=== PATIENT | female | born 1965 | race Caucasian/White ===

== ENCOUNTER 2017-01-29 07:38 | Emergency (ER) | payer OTHER ==
[2017-01-29 07:53] VITALS: BP 129/80
--- NOTE | 2017-01-29 08:24 | UC ---
Respiratory Complaint HPI - HPI Summary HPI Summary: 51 yo female with a 5 day hx of post nasal drip, nasal congestion and epistaxis no f/c no myalgias no dental pain - History of Current Complaint Chief Complaint: UCRespiratory Stated Complaint: SINUS COMPLAINT Time Seen by Provider: 01/29/17 08:13 Hx Obtained From: Patient Hx Last Menstrual Period: 2002 Onset/Duration: Gradual Onset, Lasting Days Timing: Constant Severity Initially: Mild Severity Currently: Moderate Pain Intensity: 4 Pain Scale Used: 0-10 Numeric Character: Cough: Nonproductive Aggravating Factors: Nothing Alleviating Factors: Nothing Associated Signs And Symptoms: Positive: Nasal Congestion, Sinus Discomfort Related History: Similar Episode/Dx as: - sinusitis - Allergies/Home Medications Allergies/Adverse Reactions: Allergies Allergy/AdvReac Type Severity Reaction Status Date / Time Sulfa Antibiotics Allergy Hives/Diff. Verified 01/29/17 07:47 Breathing/I tching Penicillins AdvReac See Comment Verified 01/29/17 07:47 Home Medications: Home Medications Loratadine & Pseudoephedrine [Claritin-D 24 Hour 10-240 mg] 1 tab PO DAILY 01/29 [History Confirmed 01/29/17] Omeprazole CAP* [Prilosec CAP* 20 MG] 20 mg PO DAILY 01/29/17 [History Confirmed 01/29/17] PMH/Surg Hx/FS Hx/Imm Hx Previously Healthy: Yes Cancer History Of: Denies: Breast Cancer - Surgical History Surgical History: Yes Surgery Procedure, Year, and Place: L4 L5 Microdiscectomy, 2008, ; Hysterectomy, 2002, ; C-Sections, 1992 1996, ; Bilateral Bunionectomy, 1989 1999, [place] - Family History Known Family History: Positive: Hypertension - Social History Alcohol Use: Rare Substance Use Type: None Smoking Status (MU): Never Smoked Tobacco - Immunization History Most Recent Influenza Vaccination: Not the 2016/2016 Season Review of Systems Constitutional: Negative Skin: Negative Eyes: Negative ENT: Ear Ache - mild, Nasal Discharge Respiratory: Cough Cardiovascular: Negative Gastrointestinal: Negative Genitourinary: Negative Motor: Negative Neurovascular: Negative Musculoskeletal: Negative Neurological: Negative Psychological: Negative All Other Systems Reviewed And Are Negative: Yes Physical Exam Triage Information Reviewed: Yes Appearance: Well-Appearing, No Pain Distress, Well-Nourished Vital Signs: Initial Vital Signs Temp 98.8 F 03/09/17 07:45 Pulse 74 01/29/17 07:45 Resp 16 01/29/17 07:45 BP 129/80 01/29/17 07:45 Pulse Ox 98 01/29/17 07:45 Vital Signs Reviewed: Yes Eyes: Positive: Conjunctiva Clear ENT: Positive: Hearing grossly normal, Nasal congestion, Nasal drainage, TM bulging, Other: - bilat max sinus tenderness. Negative: TMs normal - left retracted, TM dull, TM red, Tonsillar swelling, Tonsillar exudate, Trismus, Muffled/hoarse voice Dental Exam: Normal Neck: Positive: Supple, Nontender, No Lymphadenopathy Respiratory: Positive: Lungs clear, Normal breath sounds, No respiratory distress Cardiovascular: Positive: RRR, No Murmur Musculoskeletal: Positive: Strength Intact, ROM Intact, No Edema Neurological: Positive: Alert, Muscle Tone Normal Psychological Exam: Normal Skin Exam: Normal UC Diagnostic Evaluation - Laboratory O2 Sat by Pulse Oximetry: 98 Respiratory Course/Dx - Differential Dx/Diagnosis Provider Diagnoses: acute sinusitis Discharge - Discharge Plan Condition: Stable Disposition: HOME Prescriptions: Azithromycin TAB* [Zithromax TAB*] 250 mg PO DAILY #6 tab Patient Education Materials: Sinusitis (ED) Referrals: Teja Winter MD [Primary Care Provider] - 1 Week (if not better) Additional Instructions: continue saline nasal spray warm facial compresses
== END 2017-01-29 08:40 | disposition home or self-care (01) ==
LOC: UCCORT 07:38
DX: J01.90 Acute sinusitis, unspecified (principal); Z88.0 Allergy status to penicillin; Z88.2 Allergy status to sulfonamides
CPT/HCPCS: 99212; G0463

== ENCOUNTER 2018-03-19 17:54 | Emergency (ER) | payer OTHER ==
[2018-03-19 19:22] VITALS: BP 134/84
--- NOTE | 2018-03-19 19:37 | UC ---
Dental HPI - HPI Summary HPI Summary: Per human resource officer "Pt presents complaining of right upper gum pain. Started having some sensitivity about 2 days ago. It has progressively worsened. Now swollen. Has been using salt water swish and spit. " -started as a nuisance a few days ago. came adn went. woke up this morning w/ significant more swelling and now with abscess. never had one before. her dentist closed at noon today and couldnt get in. allergy to PCN, sulfa - History of Current Complaint Stated Complaint: TOOTH COMPLAINT - ABCESS Time Seen by Provider: 03/19/18 19:15 Hx Last Menstrual Period: 2002 - Allergies/Home Medications Allergies/Adverse Reactions: Allergies Allergy/AdvReac Type Severity Reaction Status Date / Time Penicillins Allergy See Comment Verified 03/19/18 19:23 Sulfa (Sulfonamide Allergy Hives/Diff. Verified 03/19/18 19:23 Antibiotics) Breathing/I tching Home Medications: Home Medications Cholecalciferol TAB* [Vitamin D TAB*] 1,000 unit PO DAILY 03/19/18 [History Confirmed 03/19/18] PMH/Surg Hx/FS Hx/Imm Hx Previously Healthy: Yes - Surgical History Surgical History: Yes Surgery Procedure, Year, and Place: L4 L5 Microdiscectomy, 2008, ; Hysterectomy, 2002, ; C-Sections, 1992 1996, ; Bilateral Bunionectomy, 1989 1999, [place] - Family History Known Family History: Positive: Hypertension - Social History Alcohol Use: Rare Substance Use Type: None Smoking Status (MU): Never Smoked Tobacco - Immunization History Most Recent Influenza Vaccination: Not the Season Review of Systems Constitutional: Negative Skin: Negative Eyes: Negative ENT: Dental Pain Respiratory: Negative Cardiovascular: Negative Gastrointestinal: Negative Genitourinary: Negative Motor: Negative Neurovascular: Negative Musculoskeletal: Negative Neurological: Negative Psychological: Negative Is Patient Immunocompromised?: No All Other Systems Reviewed And Are Negative: Yes Physical Exam Triage Information Reviewed: Yes Appearance: Well-Appearing, No Pain Distress, Well-Nourished - very pleasant Vital Signs Reviewed: Yes Eye Exam: Normal ENT: Positive: Pharynx normal, TMs normal Dental: Positive: Abscess @ - right upper molar, small-moderate w/ inflammed gums Neck exam: Normal Neck: Positive: Supple, Nontender, No Lymphadenopathy Respiratory Exam: Normal Respiratory: Positive: Lungs clear Cardiovascular Exam: Normal Cardiovascular: Positive: RRR, No Murmur Abdominal Exam: Normal Abdomen Description: Positive: Nontender, Soft Musculoskeletal Exam: Normal Neurological Exam: Normal Psychological Exam: Normal Skin Exam: Normal Dental Complaint Course/Dx - Course Course Of Treatment: treat w/ clinda 300mgs po TID x 10 days w/ probiotic b/c allergies to PCN, bactrim. -has taken this before w/o issues. -APAP/Nsaids for pain - Differential Dx/Diagnosis Differential Diagnosis/Dx: Dental Abscess, Dental Caries, Odontogenic Pain Provider Diagnoses: rt upper molar abscess Discharge - Sign-Out/Discharge Documenting (check all that apply): Post-Discharge Follow Up - Discharge Plan Condition: Stable Disposition: HOME Prescriptions: Clindamycin Cap(NF) [Clindamycin Cap 300 mg Cap(NF)] 300 mg PO TID 10 Days #30 cap Patient Education Materials: Dental Abscess (ED) Referrals: Maxim CORRIGAN,Nathaly Erazo [Primary Care Provider] - Additional Instructions: -Make sure to take a probiotic daily while on antibiotics to help prevent a potential complication of antibiotic use called c diff. Some well known brands that can be found OTC are florastor, align and [employer]. Make sure to complete the entire prescription unless advised otherwise by your health care provider. _Call your dentist on Thursday to be seen. -tylenol, advil for pain - Billing Disposition and Condition Condition: STABLE Disposition: HOME
== END 2018-03-19 19:52 | disposition home or self-care (01) ==
LOC: UCCORT 17:54
DX: K04.7 Periapical abscess without sinus (principal); Z88.0 Allergy status to penicillin; Z88.2 Allergy status to sulfonamides
CPT/HCPCS: 99212; G0463